=== PATIENT | female | born 1965 | race Caucasian/White ===

== ENCOUNTER 2018-03-02 17:52 | Emergency (ER) | payer MEDICAID ==
[2018-03-02] MEDS ORDERED: NS 1,000 ML IV ONE (18:38)
[2018-03-02] MEDS ORDERED: ONDANSETRON 4 MG/2 ML VIAL IVP ONE (18:38)
[2018-03-02 19:17] LABS: PLATELET COUNT 222 10^3/uL (150-400)
[2018-03-02] MEDS ORDERED: KETOROLAC 15 MG/1 ML SDV IVP ONE (19:53)
[2018-03-02] MEDS ORDERED: IOPAMIDOL (ISOVUE-300) 100 ML BTL ONE (19:57)
[2018-03-02 20:50] VITALS: BP 119/78
--- NOTE | 2018-03-02 21:16 | EDPHY ---
H & P Stated Complaint: DENTAL SURG TUES/RX PERCOCET/NOW WITH ABD DISTENTION/BACK PAIN "FEELS OFF" - Personal History LMP (Females 10-55): Over 28 Days Ago Current Tetanus Diphtheria and Acellular Pertussis (TDAP): No - Medical/Surgical History Hx Asthma: No Hx Chronic Respiratory Disease: No Hx Diabetes: No Hx Cardiac Disease: No Hx Renal Disease: No Hx Cirrhosis: No Hx Alcoholism: No Hx HIV/AIDS: No Hx Splenectomy or Spleen Trauma: No Other PMH: TBI, psoriasis, PTSD - Social History Smoking Status: Never smoked Time Seen by Provider: 03/02/18 18:32 HPI/ROS: Chief complaint: Abdominal bloating History of present illness: This is a 52-year-old female who presents to the emergency department for abdominal bloating. Patient reports the onset of symptoms last week. She had a dental procedure. She was given Percocet. She states after taking the Percocet she felt out of it. She developed abdominal discomfort at that time. It has been progressing. She reports decrease in the size and amount of bowel movements. She denies other potential precipitating factors. She denies alleviating factors. She denies other associated signs or symptoms including no fevers, no nausea or vomiting, no urinary symptoms, no blood in her stools. Review of systems: A 10 point review of systems was obtained and other than described above was negative (Zeeshan Mclain) Constitutional: Initial Vital Signs Temperature (C) 36.4 C 03/02/18 18:02 Heart Rate 92 03/02/18 18:02 Respiratory Rate 18 03/02/18 18:02 Blood Pressure 121/94 H 03/02/18 18:02 O2 Sat (%) 97 03/02/18 18:02 O2 Delivery Mode Room Air Allergies/Adverse Reactions: acetaminophen [From Vicodin] Allergy (Verified 03/02/18 18:00) hydrocodone bitartrate [From Vicodin] Allergy (Verified 03/02/18 18:00) lamotrigine [From Lamictal] Allergy (Verified 03/02/18 18:00) Rash Home Medications: Medication Instructions Recorded Ambien 10 mg 10 mg PO HS 05/27/14 LORAZEPAM 2 mg PO DAILY 05/27/14 Prozosin 1 mg PO HS 05/27/14 LORazepam 4 mg PO HS 02/15/16 Risperidone 0.25 mg PO HS 02/15/16 VITAMIN D 4,000 iunits PO CONT 02/15/16 Cyclobenzaprine 03/02/18 Dicyclomine [Bentyl 20 MG (*)] 20 mg PO QID #10 tab 03/02/18 Percocet 5-325 mg Tablet 03/02/18 Medical Decision Making - Diagnostics Imaging: Discussed imaging studies w/ director of occupational health Radiologist ED Course/Re-evaluation: I discussed patient's case and care with my secondary supervising physician Dr. Sara Coker. Patient presents with abdominal discomfort. She is afebrile and vital signs are stable. Physical exam is unremarkable including benign serial abdominal exams that were performed in the emergency room. Blood studies are largely unremarkable. CT scan does show mild constipation which would be consistent with her history. She will be discharged. Home care is discussed. She is to follow up with a primary care doctor for recheck. Return precautions are given. Patient voiced understanding and agreement with plan. ( Zeeshan Mclain) The patient was evaluated and managed by the physician assistant family teacher. I have reviewed this chart and I agree with the findings and plan of care as documented , as indicated by my signature. I am the secondary supervising physician. ( Sara Coker) Differential Diagnosis: Included but not limited to constipation, bowel obstruction, ileus, biliary tract disease, pancreatitis, colitis, medication side effects (Zeeshan Mclain) - Data Points Laboratory Results: Laboratory Results 03/02/18 19:05 03/02/18 19:05 Medications Given: Discontinued Medications Sodium Chloride (Ns) 1,000 mls @ 0 mls/hr IV EDNOW ONE; Wide Open PRN Reason: Protocol Stop: 03/02/18 18:39 Last Admin: 03/02/18 19:02 Dose: 1,000 mls Ketorolac Tromethamine (Toradol) 15 mg IVP EDNOW ONE Stop: 03/02/18 19:54 Last Admin: 03/02/18 20:49 Dose: Not Given Ondansetron HCl (Zofran) 4 mg IVP EDNOW ONE Stop: 03/02/18 18:39 Last Admin: 03/02/18 19:02 Dose: 4 mg Departure - Departure Disposition: Home, Routine, Self-Care Clinical Impression: Constipation Abdominal pain Qualifiers: Abdominal location: generalized Qualified Code(s): R10.84 - Generalized abdominal pain Condition: Good Instructions: Dicyclomine (By mouth), Constipation (ED) Additional Instructions: Follow-up with your primary care doctor for continued evaluation and care I recommend you use magnesium citrate for your constipation In addition use a fiber supplement Please follow-up with your primary care doctor for the cyst seen on your kidney , you may want to get an ultrasound of this If symptoms worsen or new symptoms develop return to the emergency room for recheck Referrals: Yun Obrien MD [Primary Care Provider] - As per Instructions Prescriptions: Dicyclomine [Bentyl 20 MG (*)] 20 mg PO QID #10 tab
[2018-03-02] MEDS ORDERED: MAGNESIUM CITRATE 300 ML BOTTLE ONE (21:31)
== END 2018-03-02 21:38 | disposition home or self-care (01) ==
DX: K59.00 Constipation, unspecified (principal); E86.9 Volume depletion, unspecified
CPT/HCPCS: 96374; J2405; Q9967

== ENCOUNTER 2018-03-08 00:33 | Emergency (ER) | payer MEDICAID ==
--- NOTE | 2018-03-08 00:48 | EDPHY ---
H & P Stated Complaint: PSYCHOTHYMIC Source: Patient - Personal History LMP (Females 10-55): Post Menopausal Current Tetanus Diphtheria and Acellular Pertussis (TDAP): No - Medical/Surgical History Hx Asthma: No Hx Chronic Respiratory Disease: No Hx Diabetes: No Hx Cardiac Disease: No Hx Renal Disease: No Hx Cirrhosis: No Hx Alcoholism: No Hx HIV/AIDS: No Hx Splenectomy or Spleen Trauma: No Other PMH: TBI, psoriasis, PTSD - Social History Smoking Status: Never smoked Time Seen by Provider: 03/08/18 00:48 HPI/ROS: HPI CHIEF COMPLAINT: Depression, wants to speak with mental health. HISTORY OF PRESENT ILLNESS: Patient is a 52-year-old female she does have a history of depression, PTSD, and possibly bipolar disorder, she states that she has not been psychiatrically hospitalized in over 15 years. And she has not felt stressed or emotional like this in 15 years. She presents emergency room by private vehicle she states that all day today she has been having mood swings feeling very high and very low. She also states she has has racing thoughts. She states when she normally gets like this she has to take some Zyprexa however she did not have any of it available. She does have a counselor and psychiatrist outpatient. She presents emergency room requesting to speak to mental health as well as a dose of Zyprexa. She is accompanied by her 13-year-old son at bedside and does not have resources for him to go anywhere at this time. She states that she was having some thoughts of SI but would never act on them. Did not have a specific plan. When she started having thoughts of feeling more depressed and further thoughts of SI she decided come the emergency room for evaluation. Past Medical History: PTSD, depression, bipolar disorder Past Surgical History: Denies recent surgery Social History: Denies daily use drugs alcohol tobacco. Family History: Noncontributory ROS REVIEW OF SYSTEMS: A comprehensive 10 point review of systems is otherwise negative aside from elements mentioned in the history of present illness. Exam Constitutional nontoxic appearing in no acute distress triage nursing summary reviewed, vital signs reviewed, awake/alert. Eyes normal conjunctivae and sclera, EOMI, PERRLA. HENT normal inspection, atraumatic, moist mucus membranes, no epistaxis, neck supple/ no meningismus, no raccoon eyes. Respiratory clear to auscultation bilaterally, normal breath sounds, no respiratory distress, no wheezing. Cardiovascular rate normal, regular rhythm, no murmur, no edema, distal pulses normal. Gastrointestinal soft, non-tender, no rebound, no guarding, normal bowel sounds, no distension, no pulsatile mass. Genitourinary no CVA tenderness. Musculoskeletal no midline vertebral tenderness, full range of motion, no calf swelling, no tenderness of extremities, no meningismus, good pulses, neurovascularly intact. Skin pink, warm, & dry, no rash, skin atraumatic. Neurologic awake, alert and oriented x 3, AAOx3, moves all 4 extremities equally, motor intact, sensory intact, CN II-XII intact, normal cerebellar, normal vision, normal speech. Psychiatric flat affect, depressed Heme/Lymph/Immune no lymphadenopathy. Differential Diagnosis: Includes but is not limited to in a particular order underlying mental illness, underlying depression, bipolar disorder, mood disorder, alexis. Medical Decision Making: Plan for this patient she is voluntary. I do not feel that she is be placed on M1 hold. She would like to speak to mental health and understands that maybe 7:00 a.m. Before she can speak with them. Will give a dose of 5 mg Zyprexa to help her with her racing thoughts. Will allow her to be here this evening to speak with mental health in the morning. Re-evaluation: (Deshaun gAuirre) Constitutional: Initial Vital Signs Temperature (C) 36.4 C 03/08/18 00:40 Heart Rate 88 03/08/18 00:40 Respiratory Rate 16 03/08/18 00:40 Blood Pressure 123/88 H 03/08/18 00:40 O2 Sat (%) 95 03/08/18 00:40 O2 Delivery Mode Room Air Allergies/Adverse Reactions: acetaminophen [From Vicodin] Allergy (Verified 03/02/18 18:00) hydrocodone bitartrate [From Vicodin] Allergy (Verified 03/02/18 18:00) lamotrigine [From Lamictal] Allergy (Verified 03/02/18 18:00) Rash oxycodone [From Percocet] Allergy (Verified 03/08/18 00:37) Home Medications: Medication Instructions Recorded Ambien 10 mg 10 mg PO HS 05/27/14 LORAZEPAM 2 mg PO DAILY 05/27/14 Prozosin 1 mg PO HS 05/27/14 LORazepam 4 mg PO HS 02/15/16 Risperidone 0.25 mg PO HS 02/15/16 VITAMIN D 4,000 iunits PO CONT 02/15/16 Cyclobenzaprine 03/02/18 Dicyclomine [Bentyl 20 MG (*)] 20 mg PO QID #10 tab 03/02/18 Percocet 5-325 mg Tablet 03/02/18 Medical Decision Making ED Course/Re-evaluation: 0623AM: No acute events overnight patient is sleeping. Patient's son is at bedside as well. 0700: Patient signed over to Dr. Blandon at 7:00 a.m. Shift change. Patient here with history of depression, like to speak with mental health. Not on M1 hold. Voluntary. Calm, cooperative. (Deshaun Aguirre) Other Provider: I assumed care of the patient at 0700. The patient is not on M1 psychiatric hold. Her case was discussed with [facility] who stated they would be happy to see her in the clinic. The patient is able to contract for safety. She also reports that she has an appointment with her therapist today. The patient does take Zyprexa on a as needed basis. She is comfortable contacting her psychiatrist today to get a refill of the medication. She has been discharged home with customary aftercare instructions. She is given the contact number for the walk-in clinic at [facility]. (Madan Blandon) - Data Points Medications Given: Discontinued Medications Olanzapine (Olanzapine) 5 mg PO ONCE ONE Stop: 03/08/18 00:56 Last Admin: 03/08/18 01:24 Dose: 5 mg Departure - Departure Disposition: Home, Routine, Self-Care Clinical Impression: Depression Condition: Good Instructions: Depression (ED) Additional Instructions: 1. Please follow-up with the mental health resources provided in the ED today. 2. [facility] does operate a 06/04 psychiatric crisis unit located at [address] The telephone number for the 24 hour crisis center is [phone]. 3. Please return to the ED if you are feeling suicidal, having thoughts of harming yourself/others or should you feel unsafe or have worsening symptoms. 4. Please contact your psychiatrist for a Zyprexa refill. Referrals: Yun Obrien MD [Primary Care Provider] - As per Instructions
[2018-03-08] MEDS ORDERED: OLANZapine 5 MG TAB PO ONE (00:55)
[2018-03-08 08:17] VITALS: BP 137/89
== END 2018-03-08 08:48 | disposition home or self-care (01) ==
DX: F32.9 Major depressive disorder, single episode, unspecified (principal)

== ENCOUNTER 2018-03-17 12:37 | Emergency (ER) | payer MEDICAID, OTHER ==
[2018-03-17 13:24] LABS: PLATELET COUNT 256 10^3/uL (150-400)
--- NOTE | 2018-03-17 14:04 | EDPHY ---
H & P Time Seen by Provider: 03/17/18 13:39 HPI/ROS: CHIEF COMPLAINT: Abdominal bloating, and worsening depression HISTORY OF PRESENT ILLNESS: This 53-year-old woman comes in primarily for worsening depression. She says she decreased her cyclobenzaprine or last 3 days and today she felt like she was much more depressed. She denies suicidal ideation or homicidal ideation, denies jimena hallucinations but reports which she terms"disorganized thinking"that she has thoughts of being in a"altered universe"or thoughts that"I am ."She realized these are not true things. She feels like she is"not clearing like I thought I would"and has worsening depression. She was here on 03/08 and thinks is Zyprexa helped her. REVIEW OF SYSTEMS: Eye: no change in vision ENT: no sore throat Cardiac: no chest pain or syncope Pulmonary: no cough or SOB Abdomen: Abdominal bloating intermittently for the past 2 years. Musculoskeletal: no back pain Skin: Diffuse psoriasis rash, unchanged Neuro: no headache Constitutional: no fever : no urinary symptoms A comprehensive 10 point review of systems is otherwise negative aside from elements mentioned in the history of present illness. PAST MEDICAL HISTORY: Head injury 18 years ago when she fell on the ice skating but no surgery, psoriasis, PTSD, depression, hand surgery Social history: No alcohol or drugs, has a teenage son General Appearance: Alert and conversant, cooperative. Eyes: No scleral icterus. ENT, Mouth: Normal mucous membranes. Respiratory: Normal respiratory effort, breath sounds equal, lungs are clear to auscultation. Cardiovascular: Regular rate and rhythm. Gastrointestinal: Abdomen is soft and non tender. Normal bowel sounds, no masses felt, no rebound or guarding. No hernia. Neurological: Alert, face symmetric, normal motor and sensory in extremities. Skin: Diffuse rash of psoriasis including trunk and abdomen as well as arms. Musculoskeletal: No peripheral edema. Psychiatric: Not agitated. Admits to depression but denies acute suicidal ideation or homicidal ideation. Emergency Department course/MDM: Labs reviewed. Her abdominal bloating does not appear to represent acute emergent medical or surgical conditions. I think it is unlikely that she has bowel obstruction or intestinal perforation or appendicitis or . Referred to outpatient walk-in mental health clinic for evaluation today as she is not presenting with criteria for 72 hr mental health hold. Smoking Status: Never smoked Constitutional: Initial Vital Signs Temperature (C) 36.5 C 03/17/18 12:43 Heart Rate 96 03/17/18 12:43 Respiratory Rate 18 03/17/18 12:43 Blood Pressure 119/82 H 03/17/18 12:43 O2 Sat (%) 96 03/17/18 12:43 O2 Delivery Mode Room Air Allergies/Adverse Reactions: hydrocodone bitartrate [From Vicodin] Allergy (Verified 03/02/18 18:00) lamotrigine [From Lamictal] Allergy (Verified 03/02/18 18:00) Rash oxycodone [From Percocet] Allergy (Verified 03/08/18 00:37) Home Medications: Medication Instructions Recorded Ambien 10 mg 10 mg PO HS 05/27/14 LORAZEPAM 2 mg PO DAILY 05/27/14 Prozosin 1 mg PO HS 05/27/14 LORazepam 4 mg PO HS 02/15/16 Risperidone 0.25 mg PO HS 02/15/16 VITAMIN D 4,000 iunits PO CONT 02/15/16 Cyclobenzaprine 03/02/18 Dicyclomine [Bentyl 20 MG (*)] 20 mg PO QID #10 tab 03/02/18 Magnesium 03/17/18 Medical Decision Making - Data Points Laboratory Results: Laboratory Results 03/17/18 13:15 03/17/18 13:15 03/17/18 03/17/18 03/17/18 13:45 13:45 13:15 WBC RBC Hgb Hct MCV MCH MCHC RDW Plt Count MPV Neut % (Auto) Lymph % (Auto) [place] % (Auto) Eos % (Auto) Baso % (Auto) Nucleat RBC Rel Count Absolute Neuts (auto) Absolute Lymphs (auto) Absolute Monos (auto) Absolute Eos (auto) Absolute Basos (auto) Absolute Nucleated RBC Immature Gran % Immature Gran # Sodium Potassium Chloride Carbon Dioxide Anion Gap BUN Creatinine Estimated GFR Glucose Calcium Beta HCG, Qual NEGATIVE Urine Color COLORLESS Urine Appearance CLEAR Urine pH 8.0 H (5.0-7.5) Ur Specific [place] 1.001 L (1.002-1.030) Urine Protein NEGATIVE (NEGATIVE) Urine Ketones NEGATIVE (NEGATIVE) Urine Blood NEGATIVE (NEGATIVE) Urine Nitrate NEGATIVE (NEGATIVE) Urine Bilirubin NEGATIVE (NEGATIVE) Urine Urobilinogen NEGATIVE EU EU (0.2-1.0) Ur Leukocyte Esterase NEGATIVE (NEGATIVE) Urine Glucose NEGATIVE (NEGATIVE) Urine Opiates Screen NEGATIVE (NEGATIVE) Urine Barbiturates NEGATIVE (NEGATIVE) Ur Phencyclidine Scrn NEGATIVE (NEGATIVE) Ur Amphetamine Screen NEGATIVE (NEGATIVE) U Benzodiazepines Scrn NON-NEGATIVE H (NEGATIVE) Urine Cocaine Screen NEGATIVE (NEGATIVE) U Marijuana (THC) Screen NEGATIVE (NEGATIVE) Ethyl Alcohol 03/17/18 03/17/18 13:15 13:15 WBC 8.31 10^3/uL 10^3/uL (3.80-9.50) RBC 4.49 10^6/uL 10^6/uL (4.18-5.33) Hgb 13.2 g/dL g/dL (12.6-16.3) Hct 38.5 % % (38.0-47.0) MCV 85.7 fL fL (81.5-99.8) MCH 29.4 pg pg (27.9-34.1) MCHC 34.3 g/dL g/dL (32.4-36.7) RDW 12.9 % % (11.5-15.2) Plt Count 256 10^3/uL 10^3/uL (150-400) MPV 12.0 fL H fL (8.7-11.7) Neut % (Auto) 63.5 % % (39.3-74.2) Lymph % (Auto) 22.1 % % (15.0-45.0) [place] % (Auto) 8.8 % % (4.5-13.0) Eos % (Auto) 4.0 % % (0.6-7.6) Baso % (Auto) 1.1 % % (0.3-1.7) Nucleat RBC Rel Count 0.0 % % (0.0-0.2) Absolute Neuts (auto) 5.28 10^3/uL 10^3/uL (1.70-6.50) Absolute Lymphs (auto) 1.84 10^3/uL 10^3/uL (1.00-3.00) Absolute Monos (auto) 0.73 10^3/uL 10^3/uL (0.30-0.80) Absolute Eos (auto) 0.33 10^3/uL 10^3/uL (0.03-0.40) Absolute Basos (auto) 0.09 10^3/uL 10^3/uL (0.02-0.10) Absolute Nucleated RBC 0.00 10^3/uL 10^3/uL (0-0.01) Immature Gran % 0.5 % % (0.0-1.1) Immature Gran # 0.04 10^3/uL 10^3/uL (0.00-0.10) Sodium 140 mEq/L mEq/L (135-145) Potassium 4.3 mEq/L mEq/L (3.3-5.0) Chloride 106 mEq/L mEq/L (97-110) Carbon Dioxide 26 mEq/l mEq/l (22-31) Anion Gap 8 mEq/L mEq/L (8-16) BUN 9 mg/dL mg/dL (7-23) Creatinine 0.6 mg/dL mg/dL (0.6-1.0) Estimated GFR > 60 Glucose 78 mg/dL mg/dL (70-100) Calcium 9.3 mg/dL mg/dL (8.5-10.4) Beta HCG, Qual Urine Color Urine Appearance Urine pH Ur Specific [place] Urine Protein Urine Ketones Urine Blood Urine Nitrate Urine Bilirubin Urine Urobilinogen Ur Leukocyte Esterase Urine Glucose Urine Opiates Screen Urine Barbiturates Ur Phencyclidine Scrn Ur Amphetamine Screen U Benzodiazepines Scrn Urine Cocaine Screen U Marijuana (THC) Screen Ethyl Alcohol < 10 mg/dL mg/dL (0-10) Departure - Departure Disposition: Home, Routine, Self-Care Clinical Impression: Abdominal bloating Depression Qualifiers: Depression Type: unspecified Qualified Code(s): F32.9 - Major depressive disorder, single episode, unspecified Condition: Good Instructions: Depression (ED), Gas and Bloating (ED) Additional Instructions: Go to the mental health walk-in clinic directly from here. Referrals: Yun Obrien MD [Primary Care Provider] - As per Instructions
[2018-03-17 14:38] VITALS: BP 115/67
== END 2018-03-17 14:38 | disposition home or self-care (01) ==
DX: F32.9 Major depressive disorder, single episode, unspecified (principal); R14.0 Abdominal distension (gaseous)
CPT/HCPCS: 80305; G0480

== ENCOUNTER → 2018-09-29 | Outpatient (CLI) | payer MEDICAID, OTHER | LOC: BMCIMAGING 11:58 | PROVIDERS: ATTEND Family Medicine | DX: Z12.31 Encounter for screening mammogram for malignant neoplasm of breast (principal); N28.1 Cyst of kidney, acquired ==

== ENCOUNTER → 2018-10-21 | Outpatient (CLI) | payer MEDICAID | LOC: BMCIMAGING 10:54 | PROVIDERS: ATTEND Family Medicine | DX: N63.22 Unspecified lump in the left breast, upper inner quadrant (principal) ==

== ENCOUNTER → 2018-11-23 | Day surgery (SDC) | payer MEDICAID ==
[~2018-11-23] MED LIST: BUPIVACAINE 0.5% 30 ML SDV ONE; LIDOCAINE 1% 300 MG/30 ML SDV ONE; THROMBIN (BOVINE) 5,000 UNIT VIAL TP ONE
== END ==
LOC: FIMAGING 07:13
PROVIDERS: ATTEND Family Medicine
DX: N60.12 Diffuse cystic mastopathy of left breast (principal)
CPT/HCPCS: CPT4PN